=== PATIENT | male | born 1985 | race Hispanic/Latino ===

== ENCOUNTER 2022-12-06 20:10 | Emergency (ER) | payer OTHER, SELFPAY ==
--- NOTE | ~2022-12-06 | XR_ITS ---
EXAM: XR finger 3rd RT min 2V, XR hand RT min 3V DATE: 12/06/2022 20:49 HISTORY: trauma- PAIN TO RIGHT 3RD PROXIMAL DIGIT AFTER FALL . COMPARISON: None available. FINDINGS: Normal mineralization. Comminuted fracture of the mid right third proximal phalange, with 3 mm anterior displacement. No lytic or blastic lesion. Joint spaces and physes are maintained. No er osion or periosteal change. Soft tissues within normal limits. IMPRESSION: Comminuted fracture of the mid right third proximal phalange, with mild anterior displace ment. Reviewed, dictated and finalized at location K. IMPRESSION: Comminuted fracture of the mid right third proximal phalange, with mild anterior displacement.
[2022-12-06 20:15] VITALS: BP 115/77; PULSE 79; RESP 16; TEMP 36.2; O2SAT 97
[2022-12-06] MEDS: HYDROcodone/acetaminophen (*CRX) 5-325 MG TABLET 1 TAB PO (20:47)
--- NOTE | 2022-12-06 21:30 | ED.UPPEXIN ---
HPI - Extremity Injury (Upper) General Chief Complaint: Extremity Injury, Upper Stated Complaint: possible broken finger Time Seen by Provider: 12/06/22 20:27 History of Present Illness HPI narrative: Patient is a 37-year-old male who presents ER with pain to the right third digit. He was walking up some stairs when he slipped and fell forward landing on his hand. He has pain at the proximal phalanx of the third digit. No numbness or tingling. He has limited range of motion due to pain and swelling. Patient reports he was drinking some beers tonight prior to the injury. Related Data Allergies Allergy/AdvReac Type Severity Reaction Status Date / Time No Known Allergies Allergy Verified 12/06/22 20:47 Review of Systems Musculoskeletal: Musculoskeletal: Reports arthralgias, Reports joint swelling and Denies muscle cramps Neurologic: Denies headache(s), Denies focal weakness and Denies numbness PMFSH Past Medical History Medical History (Updated 12/06/22 @ 21:34 by Rex Larson MD) Diabetes Surgical History Surgical History (Updated 12/06/22 @ 21:31 by Rex Larson MD) No pertinent past surgical history Exam Narrative: GENERAL: Well-appearing, well-nourished, and in no acute distress. HEAD: Normocephalic, atraumatic. HEART: Regular rate and rhythm. Normal peripheral pulses. EXTREMITIES: Right hand exam with tenderness over the proximal phalanx of the third digit with limited range of motion at the MCP/PIP/DIP due to pain. Normal perfusion and sensation in the finger. SKIN: Warm, dry, no rash. NEURO: Alert and oriented x3. PSYCH: Normal mood and affect. Course Course Emergency Course: Patient informed of results. Splinted. Discharge home with recommended hand follow-up. Discussed they will need to call to try to schedule appointment. Patient would like to try to work with a activity restriction. Vital Signs Vital signs: Vital Signs Temperature 97.2 F L 12/06/22 20:15 Pulse Rate 79 12/06/22 20:15 Respiratory Rate 16 12/06/22 20:15 Blood Pressure 115/77 12/06/22 20:15 Pulse Oximetry 97 12/06/22 20:15 Oxygen Delivery Room Air 12/06/22 20:15 Temperature 97.2 F L 12/06/22 20:15 Pulse Rate 79 12/06/22 20:15 Respiratory Rate 16 12/06/22 20:15 Blood Pressure 115/77 12/06/22 20:15 Pulse Oximetry 97 12/06/22 20:15 Oxygen Delivery Room Air 12/06/22 20:15 Procedures Orthopedic Splinting/Casting Injury #1: Splinting/Casting Date: 12/06/22 Splinting/Casting Time: 21:33 Side: right Upper Extremity Injury Location: finger (Third) Upper Extremity Immobilizer: aluminum form splint Splint: customized in ED Pre-Procedure Neuro Vascular Exam: normal Post-Procedure Neuro Vascular Exam: normal MDM - Extremity Injury (Upper) Imaging Data Radiologist's impression: ITS Impressions Finger X-Ray 12/06/22 21:06 IMPRESSION: Comminuted fracture of the mid right third proximal phalange, with mild anterior displacement. Hand X-Ray 12/06/22 21:06 IMPRESSION: Comminuted fracture of the mid right third proximal phalange, with mild anterior displacement. Discharge Plan Discharge Clinical Impression: Finger fracture, right Patient Disposition: Home, Self-Care Condition: Stable Instructions: Finger Fracture (ED) Additional Instructions: Follow-up with the hand surgery room for further treatment and evaluation. Return the ER if you suffer new injury, your fingers cold/blue, or you have additional concerns. Patient Language: Bulgarian Prescriptions: New hydrocodone-acetaminophen 5-325 mg tablet 1 tablet PO Q6H PRN (Reason: pain) Qty: 14 0RF Follow-up/Referrals: Loki Jaffe MD [Physician] - 3 Days Alen Lainez MD [Physician] - 3 Days PHYSICIAN NOT ON STAFF,NONSTAFF [Primary Care Provider] - Stand Alone Forms: Work/School Release IP
== END 2022-12-06 22:00 | disposition home or self-care (01) ==
PROVIDERS: Emergency Provider Emergency Medicine
DX: S62.612A Displaced fracture of proximal phalanx of right middle finger, initial encounter for closed fracture (principal); E11.9 Type 2 diabetes mellitus without complications; W10.9XXA Fall (on) (from) unspecified stairs and steps, initial encounter
CPT/HCPCS: 29130; 73130; 73140; 99284; A9270

== ENCOUNTER 2022-12-20 13:08 | Outpatient (CLI) | payer OTHER, SELFPAY ==
--- NOTE | ~2022-12-20 | XR_ITS ---
EXAM: XR hand RT min 3V DATE: 12/20/2022 13:25 HISTORY: middle finger fracture 2 WKS AGO . COMPARISON: None available. FINDINGS: Normal mineralization. Redemonstration of the subacute comminuted fracture of the mid righ t third proximal phalange, with slightly increased anterior displacement. No definite interval healin g change. No new acute fracture or dislocation. No lytic or blastic lesion. Joint spaces are maintain ed. No erosion or periosteal change. Soft tissues within normal limits. IMPRESSION: Slightly increased displacement of the comminuted mid right third proximal phalange fract ure. No definite interval healing change. Reviewed, dictated and finalized at location K. TIC SURGERY ASSISTANT IMPRESSION: Slightly increased displacement of the comminuted mid right third p roximal phalange fracture. No definite interval healing change.
== END 2022-12-20 13:09 | disposition home or self-care (01) ==
PROVIDERS: PCP Family Medicine; Visit Provider Plastic Surgery
DX: S62.622A Displaced fracture of middle phalanx of right middle finger, initial encounter for closed fracture (principal); T14.90XA Injury, unspecified, initial encounter
CPT/HCPCS: 73130

== ENCOUNTER 2022-12-22 00:32 | Day surgery (SDC) | payer OTHER, SELFPAY ==
[2022-12-20 14:59] VITALS: BMI 31.0
--- NOTE | 2022-12-20 15:03 | PC.NURSE ---
Report to the Outpatient Waiting Room, entrance under the green pavilion located off [facility], at time 11:30 on date 12/22/22. Planned Procedure Time: 1:30. Time changes happen often and if your time is changed the preop area will call you the afternoon before. - You and your visitor will be asked to self-screen and do not enter if you have any COVID symptoms. - A mask is optional within the hospital at this time. - No food or drink from midnight until time of surgery Take the following medications with a SIP of water the morning of surgery: NONE DO NOT STOP ANY OF YOUR OTHER PRESCRIPTION MEDICATIONS PRIOR TO SURGERY ?EXCEPT THE FOLLOWING Medications to discontinue per physician: IBUPROFEN Date to take last dose: PER DR. ANTON Please no make-up, nail bruneian, hairspray, perfume, deodorant, or body powder the day of surgery. No jewelry (including any body piercings) or valuables the day of surgery, leave them at home. Please take a shower or bath the night before, or the morning of, surgery with an antibacterial soap. Wear comfortable, loose fitting clothing. - Jewelry must be removed prior to entering the operating room. Rings and piercings that are not removed may be cut off. - The hospital will not accept responsibility for valuables. - Please leave all valuables, including medications, at home the day of surgery. If you are going home after surgery, a licensed vacuum truck driver must drive you home. - NO public transportation without another adult if you receive anesthesia. - We recommend that an adult stay with you for 24 hours following discharge. - We also recommend that you do not drive, make important decision, drink alcoholic beverages, or take any drugs that were not prescribed by your health care provider for at least 24 hours after your discharge time. Follow any additional instructions given to you from your surgeon. If you or anyone in your household have experienced Covid symptoms in the past week, please notify your surgeon or the nurse liaison at the phone number below for possible testing. Telephone instructions given to CAMP[place] and asked if any additional questions and then verbalized understanding. Patient advised to call surgeon office or pre surgery nurse liaison [phone] if any additional questions.
--- NOTE | ~2022-12-22 | XR_ITS ---
EXAMINATION: XR surgery orthopedic DATE: 12/22/2022 14:32 INDICATION: Right third proximal phalangeal fracture TECHNIQUE: 2 fluoroscopic images of the right third digit were obtained during procedure performed by Dr. Jaffe. Radiologist was not present for the imaging or procedure. The amount of fluoroscopy time used during this procedure was 1.3 minutes. COMPARISON: Right hand radiographs dated 12/20/2022 FINDINGS: Again seen is an oblique mid diaphyseal fracture of the third proximal phalanx which is not fixed wit h 2 oblique distal to proximal oriented percutaneous pins. There is one cortical width palmar displac ement. No other fractures identified. Joint spaces are normal. Soft tissue swelling about the proxima l third digit. IMPRESSION: 1. 1 cortex with residual palmar displacement post percutaneous pin fixation of an oblique mid diaphy seal fracture of the right third proximal phalanx. Reviewed, dictated and finalized at location A. MILL OPERATOR IMPRESSION: 1. 1 cortex with residual palmar displacement post percutaneous pin fixation of an oblique mid diaphyseal fracture of the right third proximal phalanx.
--- NOTE | 2022-12-22 09:56 | WPDHPUPDATE1 ---
History and Physical Update Update Date/Time: 12/22/22 09:56 Patient seen and examined in pre-operative holding area. No interval change in medical history or symptoms. Patient recalls previous discussion of benefits to surgery and alternatives. Continues to desire to proceed with right middle finger proximal phalanx closed possible open reduction and pinning . Reviewed procedure, post-op expectations and risks including but not limited to bleeding, infection, injury to tendon/nerve/vessel, decreased hand function, stiffness, RSD, no change or worsening of symptoms, malunion, nonunion. Patient stated understanding and signed the consent form wishing to proceed.
--- NOTE | 2022-12-22 09:57 | P.OP_ITS ---
Procedure Note - Detailed Date of Procedure 12/22/22 Pre-op Diagnosis rigth middle finger proximal phalanx fracture Post-op Diagnosis Same Procedure Performed closed reduction and pinning right middle finger proximal phalanx fracture Surgeon Loki Jaffe MD Anesthesia MAC Description of Procedure Pt. seen in pre-op area, consented and marked. Taken back to OR on stretcher in supine position. Timeout performed iwth anesthesia, surgeon and staff agreeing on patient's name, site and surgery to be performed. SCDs placed on LEs and inflated. Antibiotics were given IV. A tourniquet was placed on the RUE. After Anesthesia administered sedation I injected 3cc 1%lido and 0.5%marcaine plain for digital block in the palm. The RUE was prepped and draped in usual sterile fashion. I exanguinated the RUE with an esmarch bandage and tourniquet infalted to 250mmHg. The mini c-arm was brought in and attempts were made to redcue fracture. I was able to achieve adequate reduction and proceeded with percutaneous retrograde pinning with two 0.045 k-wires. placement was verfied on multiple views of fluoroscopy.The pipj and dipj were mobile after pinning and there was no scissoring of the digit The pin sites were trimmed and dressed with betadine soaked chlorhxidine wipe, 4x4, kilo, radial gutter splint and homar after tourniquet was let down noting fingers were warm and well perfused. The patient was awaken from anesthesia and transferred to the recovery room [facility] Tay Surgery - Charge Forward: Surgery Billing ([id number])
--- NOTE | 2022-12-22 11:53 | SUR.PREOP ---
SPOKE WITH PATIENTS , INFORMED OF 1130 ARRIVAL TIME, STATES THEY WERE PLANNNING TO BE HERE AT 1330, PT AND WILL BE LEAVING SOON TO COME TO THE HOSPITAL.
[2022-12-22 12:21] VITALS: BP 120/73; PULSE 87; RESP 18; TEMP 36.5; O2SAT 98
[2022-12-22] MEDS: LACTATED RINGERS 1,000 ML 30 ML IV CONT (12:50)
--- NOTE | 2022-12-22 12:52 | WPDANESEPPF ---
Anes - Initial Pre Proc Eval Procedure: Operation Date: 12/22/22 13:30 Proposed Procedures p Closed, Possible Open Reduction Internal Fixation Right Middle Finger Proximal Phalanx - Loki Jaffe MD Date/Time: 12/22/22 12:52 Surgeon: Loki Jaffe MD Pre Op Diagnosis: rt middle finger proximal phalanx fx Patient Data Age: 37 Gender: M Height: 1.7 m Weight: 89.6 kg Last Vital Signs Temp 36.5 C 12/22/22 12:21 Pulse 87 12/22/22 12:21 Resp 18 12/22/22 12:21 BP 120/73 12/22/22 12:21 Pulse Ox 98 12/22/22 12:21 O2 Del Method Room Air 12/22/22 12:21 Allergies Allergy/AdvReac Type Severity Reaction Status Date / Time No Known Allergies Allergy Verified 12/22/22 12:28 Home Medications Medication Instructions Recorded Confirmed Type dapagliflozin propaned 10 1 tablet PO DAILY 12/20/22 12/22/22 History mg-metformin ER 1,000 mg tablet,ext rel 24hr (Xigduo XR) ibuprofen 200 mg tablet 400 mg PO Q6H PRN Pain 12/20/22 12/22/22 History losartan 25 mg tablet 25 mg PO DAILY 12/20/22 12/22/22 History Patient hx anesthesia problems: none Family hx anesthesia problems: none Results Review: All pre-operative results and documents have been reviewed as part of the pre-operative evaluation. [facility] Past Medical History Medical History (Updated 12/22/22 @ 12:52 by Mazin Cardenas MD) Diabetes HTN (hypertension) Obesity Surgical History Surgical History No pertinent past surgical history Social History Social History Smoking status: Never smoker Alcohol intake: current Drinks per week: 12 Alcohol use details: WEEKENDS ONLY Substance use: never Substance use type: does not use Lack of Transportation: No Lack of Food: Never True Current Housing: I Have Housing Concerned About Future Housing: No Difficulty Paying Gas/Electric Bills: No Difficulty Paying for Meds: No Currently Unemployed: No Education: Decline to Answer Difficulty w/ Childcare or Family Care: No Living arrangements: with family Spiritual care concerns: No Anes - Eval Final PreProcedure Day of Procedure 12/22/22 12:52 Patient weight: obese Heart: regular rate and rhythm Lungs: clear to auscultation Airway: Mallampati scale class II Neurological: alert and oriented Last oral intake: >/= 8 hours ASA classification: III Emergent: no Anesthetic plan: proceed Anesthesia type and monitoring: general LMA and standard monitoring Results Review: All pre-operative results and documents have been reviewed as part of the pre-operative evaluation. Informed Consent: The patient's anesthetic plan and its attendant risks and benefits were discussed with the patient/family/POA. Questions were solicited and answers provided to the satisfaction of the patient/family/POA.
[2022-12-22] MEDS: ceFAZolin 2 GM/D5W 50 ML 2 GM/50 ML BAG IVPB (13:38)
[2022-12-22 13:57] VITALS: BP 101/61; PULSE 82; RESP 12; O2SAT 96
[2022-12-22] MEDS: LIDOCAINE HCL 1% LOCAL INJ 10 ML VIAL 4 ML INFILTRATE (14:19)
[2022-12-22] MEDS: BUPivacaine HCL 0.5% 10 ML AMP 4 ML INFILTRATE (14:19)
[2022-12-22 14:25] VITALS: BP 108/65; PULSE 80; RESP 12; O2SAT 97
[2022-12-22 14:30] LABS: Glucose Point of Care 191 mg/dl (65-105)
[2022-12-22 14:54] VITALS: BP 124/75; PULSE 92; RESP 12; O2SAT 97
== END 2022-12-22 15:36 | disposition home or self-care (01) ==
PROVIDERS: PCP Family Medicine; Visit Provider Plastic Surgery
PROC: (CPT 26727; principal; 2022-12-22 13:30)
DX: S62.612A Displaced fracture of proximal phalanx of right middle finger, initial encounter for closed fracture (principal); W10.9XXA Fall (on) (from) unspecified stairs and steps, initial encounter; I10 Essential (primary) hypertension; E11.9 Type 2 diabetes mellitus without complications; Z79.84 Long term (current) use of oral hypoglycemic drugs; E66.9 Obesity, unspecified; Z68.30 Body mass index [BMI] 30.0-30.9, adult
CPT/HCPCS: 26727; 82948; 99199; A9270; J0690; J1100; J2250; J2405; J2704; J3010; J7120

== ENCOUNTER 2023-01-09 15:20 | Outpatient (CLI) | payer OTHER, SELFPAY ==
--- NOTE | ~2023-01-09 | XR_ITS ---
EXAM: XR finger 3rd RT min 2V DATE: 01/09/2023 15:40 HISTORY: R MF 3V . COMPARISON: 12/20/2022. FINDINGS: Interval wire fixation of the comminuted right third proximal phalange fracture. Anatomic alignment. Evidence of interval healing change. IMPRESSION: Healing right third proximal phalange fracture. No hardware related complication. Reviewed, dictated and finalized at location K. DING CONTRACTOR
== END 2023-01-09 15:21 | disposition home or self-care (01) ==
PROVIDERS: PCP Family Medicine; Visit Provider Physician Assistant Surgical
DX: S62.612D Displaced fracture of proximal phalanx of right middle finger, subsequent encounter for fracture with routine healing (principal); T14.90XD Injury, unspecified, subsequent encounter
CPT/HCPCS: 73140

== ENCOUNTER 2023-01-24 15:38 | Outpatient (CLI) | payer OTHER, SELFPAY ==
--- NOTE | ~2023-01-24 | XR_ITS ---
EXAMINATION: XR hand RT min 3V DATE: 01/24/2023 15:52 INDICATION: Fracture of unspecified phalanx of right hand. TECHNIQUE: 3 views of right hand were obtained. COMPARISON: Right hand radiographs 12/06/2022, 12/20/2022 FINDINGS: Bone alignment is normal. There is a comminuted fracture of third proximal phalanx with lakshmi delmer formation. The main distal fracture fragment demonstrates 2 mm palmar displacement. There are tra ct bhatia from 2 pins that have been removed. Joint spaces are normal. There is heterotopic ossificati on ulnar to fourth proximal interphalangeal joint. IMPRESSION: 1. Healing comminuted fracture of third proximal phalanx. Reviewed, dictated and finalized at location E. OPERATOR
== END 2023-01-24 15:39 | disposition home or self-care (01) ==
PROVIDERS: PCP Family Medicine; Visit Provider Physician Assistant Surgical
DX: S62.602D Fracture of unspecified phalanx of right middle finger, subsequent encounter for fracture with routine healing (principal); X58.XXXD Exposure to other specified factors, subsequent encounter
CPT/HCPCS: 73130